=== PATIENT | male | born 1990 | race Two or more races ===

== ENCOUNTER 2019-06-02 10:55 | Emergency (ER) | payer MEDICAID, OTHER ==
[~2019-06-02] VITALS: Ht 170.2 cm; Wt 59.0 kg
--- NOTE | 2019-06-02 11:05 | NUR ---
PT BIB SELF C/O SORE THROAT AND FLU LIKE SYMPTOMS, PT IS AAOX4, NOT IN RESPIRATORY DISTRESS, HOOKED TO MONITOR, KEPT RESTED AND COMFORTABLE, WILL CONTINUE TO MONITOR.
--- NOTE | 2019-06-02 11:15 | NUR ---
AWAITING ER MD FOR EVAL.
--- NOTE | 2019-06-02 12:12 | NUR ---
AMY LIM AT BEDSIDE
[2019-06-02] MEDS ORDERED: IBUPROFEN 600 MG TABLET PO ONE ×2 (12:20→12:30)
[2019-06-02] MEDS ORDERED: ACETAMINOPHEN ES 500 MG TABLET ONE (12:20)
--- NOTE | 2019-06-02 12:29 | NUR ---
IV LINE ESTABLISHED. Eileen SOTO.
[2019-06-02] MEDS ORDERED: IV NS 0.9% 1,000 ML BAG IV ONE (12:30)
[2019-06-02] MEDS ORDERED: ACETAMINOPHEN 325 MG TABLET PO ONE (12:30)
--- NOTE | 2019-06-02 13:39 | NUR ---
IV removed. Catheter intact and site benign. Pressure and 4x4 applied to site. No bleeding noted. Patient discharged to home in stable condition. Written and verbal after care instructions given. Patient verbalizes understanding of instruction.
[2019-06-02 13:40] VITALS: BP 128/77
== END 2019-06-02 13:42 | disposition home or self-care (01) ==
LOC: ER 11:02
DX: J06.9 Acute upper respiratory infection, unspecified (principal); Z90.89 Acquired absence of other organs
CPT/HCPCS: 71045; 87070; 87880; 99284; J7030; 86403-TC

== ENCOUNTER 2020-08-22 00:10 | Emergency (ER) | payer OTHER ==
[~2020-08-22] VITALS: Ht 170.2 cm; Wt 61.2 kg
--- NOTE | 2020-08-22 00:31 | NUR ---
PT COMPLAINS OF CHEST PAIN AND BACK PAIN 5/10, FOR 2 DAYS . DENIES SOB, N/V, DIZZINESS, AMBULATORY TO BED, WAS PLACED ON A MONITOR. VSS. WILL CONT TO MONITOR
--- NOTE | 2020-08-22 00:40 | NUR ---
DR VALDOVINOS AT BED SIDE
--- NOTE | 2020-08-22 01:20 | NUR ---
Pt is medically stable for d/c per MD. Patient discharged to home in stable condition. Written and verbal after care instructions given. Patient verbalizes understanding of instruction.
[2020-08-22 04:13] VITALS: BP 119/76
== END 2020-08-22 01:20 | disposition home or self-care (01) ==
LOC: ER 00:35
DX: R07.89 Other chest pain (principal); Z90.89 Acquired absence of other organs
CPT/HCPCS: 71045-TC